=== PATIENT | female | born 1965 | race Caucasian/White ===

== ENCOUNTER 2016-10-17 18:19 | Emergency (ER) | payer OTHER ==
[~2016-10-17 18:19] MED LIST: ACID REDUCER 1150 MG PO; ALLEGRA ALLERG180 MG PO; CHILDRENS CHEWA81 MG PO; DULERA 200 MCG8.8 GM INH; EXCEDRIN MIGRA1 EACH PO; FLEXERIL10 MG PO; FLONASE ALLER15.8 ML; HCTZ25 MG PO; HYDROCODON-ACE1 EAC6 PO; LEVOTHYROXINE50 MCG PO; NITROQUICK0.4 MG SL; PHENERGAN25 M1 PO; PREMARIN0.625 MG PO; PRILOSEC20 MG PO; TOPROL XL 50 MG50 MG PO; VISTARIL25 MG PO; XANAX1 MG PO
[2016-10-17 18:46] LABS: URINE BILIRUBIN NEGATIVE (NEGATIVE); URINE BLOOD TRACE (NEGATIVE); URINE GLUCOSE (UA) NORMAL (NORMAL); URINE KETONE NEGATIVE (NEGATIVE); URINE LEUKOCYTE ESTERASE NEGATIVE (NEGATIVE); URINE NITRATE NEGATIVE (NEGATIVE); URINE PROTEIN 1+ (NEGATIVE); UROBILINOGEN NORMAL mg/dL (<1.0)
[2016-10-17 18:53] LABS: BASO % 0.2 % (0.1-1.2); EOS # 0.1 10_X3_uL (0.0-0.4); EOS % 0.9 % (0.7-5.8); GRAN # 5.5 10_X3_uL (1.6-6.1); GRAN % 64.4 % (34.0-71.1); HEMATOCRIT 45.8 % (34-45); HEMOGLOBIN 14.9 g/dL (11.2-15.7); LYMPH # 2.5 10_X3_uL (1.2-3.7); LYMPH % 28.8 % (19.3-51.7); MEAN CORPUSCULAR HEMOGLOBIN 29.4 pg (27.0-33.0); MEAN CORPUSCULAR HGB CONC 32.5 g/dL (32.0-36.0); MEAN CORPUSCULAR VOLUME 90.5 fL (79-95); MONO # 0.5 10_X3_uL (0.2-0.9); MONO % 5.7 % (4.7-12.5); PLATELET COUNT 307 x10_3/uL (182-369); RED BLOOD COUNT 5.06 x10_6/uL (3.9-5.2); RED CELL DISTRIBUTION WIDTH 13.6 % (11.7-14.4); WHITE BLOOD COUNT 8.5 x10_3/uL (4.0-10.0)
[2016-10-17 18:56] LABS: URINE RBC 0-5 /[HPF] (0-2); URINE SQUAMOUS EPITHELIAL CELL 0-10 /[HPF] (NONE SEEN); URINE WBC 0-5 /[HPF] (0-5)
[2016-10-17 18:57] LABS: URINE BACTERIA TRACE (NONE SEEN)
[2016-10-17 19:11] LABS: ALBUMIN 4.5 gm/dL (3.4-5.0); ALKALINE PHOSPHATASE 93 U/L (50-136); ALT/SGPT 22 U/L (3.5-33.9); AST/SGOT 34 U/L (7.04-26.96); BILIRUBIN,TOTAL 0.29 mg/dL (0.0-1.0); BLOOD UREA NITROGEN 12 mg/dL (7-18); CALCIUM 9.3 mg/dL (8.7-10.7); CARBON DIOXIDE 28 mmol/L (21-32); CREATINE KINASE 65 U/L (21-215); CREATININE 0.6 mg/dL (0.6-1.3); GLUCOSE,RANDOM 92 mg/dL (70-99); LIPASE 17 U/L (6.75-60.75); POTASSIUM 3.7 mmol/L (3.5-5.1); SODIUM 138 mmol/L (136-145); TOTAL PROTEIN 7.6 gm/dL (6.4-8.2)
== END 2016-10-17 19:45 | disposition home or self-care (01) ==
LOC: ER 18:19
PROVIDERS: Internal Medicine
DX: R07.9 Chest pain, unspecified (principal); R10.9 Unspecified abdominal pain; Z90.49 Acquired absence of other specified parts of digestive tract; Z90.710 Acquired absence of both cervix and uterus; Z79.899 Other long term (current) drug therapy; Z79.890 Hormone replacement therapy; Z88.8 Allergy status to other drugs, medicaments and biological substances; Z88.5 Allergy status to narcotic agent; Z88.1 Allergy status to other antibiotic agents
CPT/HCPCS: 36415; 71020; 80053; 81001; 82550; 82553; 83690; 85025; 93005; 99070; 99285-25